=== PATIENT | female | born 1990 | race Caucasian/White ===

== ENCOUNTER 2017-01-23 23:01 | Emergency (ER) | payer BC ==
[2017-01-23 23:06] VITALS: BP 120/80; BMI 32.5
[2017-01-24] MEDS ORDERED: TORADOL 60 MG VIAL IM ONE (00:27)
[2017-01-24] MEDS ORDERED: ZOFRAN INJ 4 MG VIAL IM ONE (00:27)
--- NOTE | 2017-01-24 00:39 | DR.GENAD ---
HPI - PCP Primary Care Physician: [email or web address] - Complaint/Symptoms Chief Complaint:: FATIGUE, PAIN WITH DEEP BREATH, HEADACHE FOR 2 WEEKS, CHILLS - Source History Provided: Patient - Mode of Arrival Mode of Arrival: Ambulatory - Timing Onset of Chief Complaint: 01/23/17 - Duration Duration: Intermittent - Severity Severity: Moderate PMH - PMH Past Medical History: Yes Past Medical History: Diabetes Past Surgical History: No - Family History History of Family Medical Conditions: Yes Family Medical History: Diabetes Mellitus, Hypertension - Social History Does patient currently use any type of tobacco product: No Have you used tobacco products in the last 12 months: No Type of Tobacco Use: None Does any household member use tobacco: No Alcohol Use: None Do you use any recreational Drugs:: No Lives With: Significant Other Lives Where: Home - infectious screening Have you traveled outside the country in the last 6 months?: No Isolation: Standard PE - Vital Signs Vitals: Temperature 98.2 F Pulse Rate 110 Respiratory Rate 18 Blood Pressure 120/80 O2 Sat by Pulse Oximetry 99 - Diagnosis Discharge Problem: Tension headache - Discharge Plan Disposition: HOME, SELF-CARE Condition: Stable - Follow ups/Referrals Follow ups/Referrals: AZAR JEFFERS [Primary Care Provider] - 3 days - Instructions Instructions: Tension Headache, [id number]
[2017-01-24] MEDS ORDERED: TORADOL 60 MG VIAL ONE (00:49)
[2017-01-24] MEDS ORDERED: ZOFRAN INJ 4 MG VIAL ONE (00:49)
== END 2017-01-24 01:15 | disposition home or self-care (01) ==
LOC: ER 23:01
DX: R51 Headache (principal)
CPT/HCPCS: 96372; 99282; J1885; J2405

== ENCOUNTER 2017-01-28 09:08 | Emergency (ER) | payer BC ==
[2017-01-28 09:12] VITALS: BP 118/75; BMI 32.5
[2017-01-28] MEDS ORDERED: ZOFRAN INJ 4 MG VIAL IVP ONE (09:27)
[2017-01-28] MEDS ORDERED: NS 1000 ML 1,000 ML IV ONE (09:27)
[2017-01-28] MEDS ORDERED: NS 1000 ML 1,000 ML ONE ×2 (09:28→10:55)
[2017-01-28] MEDS ORDERED: ZOFRAN INJ 4 MG VIAL ONE (09:30)
--- NOTE | 2017-01-28 09:42 | DR.GENAD ---
HPI - PCP Primary Care Physician: felicia - HPI Comment HPI Comment: NAUSEA AND VOMITING STATED YESTERDAY. GLUCOSE WAS HIGH, INSULIN TAKING. THIS AM, GLUCOSE 200. STILL HAVING N/V. PATIENT IS WEAK. NOT HOLDING DOWN LIQUIDS - Complaint/Symptoms Chief Complaint Doctors Comments: NAUSEA, VOMITING, ELEVATED GLUCOSE TIME ONE DAY. Chief Complaint:: patient stated that yesterday her blood sugar was over 600 she took insulin blood sugar this morning was over 200. she has been vomiting since yesterday. - Nurses notes reviewed Nurses Notes Review: Yes - Source History Provided: Patient - Mode of Arrival Mode of Arrival: Ambulatory - Timing Onset of Chief Complaint: 01/27/17 Came on: Suddenly - Duration Duration: Constant Duration: Days - Severity Severity: Moderate PMH - PMH Past Medical History: Yes Past Medical History: Diabetes Past Surgical History: No - Family History History of Family Medical Conditions: Yes Family Medical History: Diabetes Mellitus, Hypertension - Social History Does patient currently use any type of tobacco product: No Have you used tobacco products in the last 12 months: No Type of Tobacco Use: None Does any household member use tobacco: No Alcohol Use: None Do you use any recreational Drugs:: No Lives With: Family Lives Where: Home - infectious screening In the last 2 months have you had wt loss of >10#?: NO Have you had fever, night sweats or hemotysis?: No Have you traveled outside the country in the last 6 months?: No Isolation: Standard ROS - Review of Systems Constitutional: Weakness, Fatigue. negative: Chills, Fever Eyes: No Symptoms Reported. negative: Eye Pain, Discharge ENTM: No Symptoms Reported. negative: Ear Pain, Nose Discharge, Nose Congestion , Throat Pain Respiratoy: Non-Productive Cough. negative: Productive Cough, Short of Breath, Wheezing, Hemoptysis Cardiovascular: No Symptoms Reported. negative: Chest Pain Gastrointestinal/Abdominal: Abdominal Pain, Nausea, Vomiting Genitourinary: No Symptoms Reported. negative: Dysuria, Frequency, Hematuria Neurological: Weakness Musculoskeletal: Muscle Pain Integumentary: No Symptoms Reported Hematologic/Lymphatic: No Symptoms Reported Endocrine: No Symptoms Reported All Other Systems: Reviewed and Negative PE - Vital Signs Vitals: Temperature 97.9 F Respiratory Rate 18 Blood Pressure 118/75 - General Limitations: No Limitations General Appearance: Alert - Head Head Exam: Normal Inspection - Eyes Eye exam: Normal Appearance - ENT ENT Exam: Normal External Ear Exam External Ear Exam: Normal External Inspection TM/Canal Exam: Bilateral Normal Nose Exam: Normal Nose Exam Mouth Exam: Normal Inspection Throat Exam: Normal Inspection - Neck Neck Exam: Trachea Midline. negative: Tenderness, Meningismus, Lymphadenopathy - Chest Chest Inspection: Symmetric Chest Wall Rise - Respiratory Respiratory Exam: Normal Lung Sounds Bilat Respiratory Exam: Bilateral Clear to Auscultation - Cardiovascular Cardiovascular Exam: Regular Rate, Normal Rhythm, Normal Heart Sounds - Abdominal Exam Abdominal Exam: Normal Bowel Sounds, Soft, Tenderness Abdominal Tenderness: Diffuse, Mild - Extremities Extremities Exam: Normal Inspection - Back Back Exam: Normal Inspection - Neurologic Neurological Exam: Alert, Oriented X3 - Psychiatric Psychiatric Exam: Anxious - Skin Skin Exam: Normal Color MDM - Differential Diagnosis Differential Diagnosis: GASTRITIS, NAUSEA/VOMITING. BOWEL OBSTRUCTION Course - Treatment Treatment: SEE ORDERS. - Education/Counseling Education/Counseling: Patient, Education Educated On: Diagnosis, Needs for Follow Up ROR - Labs Reviewed Laboratory Results Reviewed?: Yes Result Diagrams: 01/28/17 09:38 01/28/17 09:38 Laboratory: WBC 10.4 X10^3/uL (3.6-10.0) H 01/28/17 09:38 RBC 6.62 X10^6/uL (3.5-5.4) H 01/28/17 09:38 Hgb 12.2 g/dL (12.0-16.0) 01/28/17 09:38 Hct 38.2 % (36.0-47.0) 01/28/17 09:38 MCV 57.7 fL (80.0-100.0) L 01/28/17 09:38 MCH 18.4 pg (27.0-34.0) L 01/28/17 09:38 MCHC 31.9 g/dL (33.0-35.0) L 01/28/17 09:38 RDW 16.5 % (11.6-16.5) 01/28/17 09:38 Plt Count 288 X10^3/uL (150.0-450.0) 01/28/17 09:38 Plt Count Comment Adequate (ADEQUATE) 01/28/17 09:38 MPV 9.1 fL (7.4-11.0) 01/28/17 09:38 Neut % 66.6 % (42.0-75.0) 01/28/17 09:38 Lymph % 25.2 % (21.0-51.0) 01/28/17 09:38 [place] % 5.4 % (0.0-13.0) 01/28/17 09:38 Eos % 2.1 % (0.9-2.9) 01/28/17 09:38 Baso % 0.7 % (0.2-1.0) 01/28/17 09:38 Neut # 6.9 x10^3/uL (2.2-4.8) H 01/28/17 09:38 Lymph # 2.6 X10^3/uL (1.3-2.9) 01/28/17 09:38 [place] # 0.6 x10^3/uL (0.3-0.8) 01/28/17 09:38 Eos # 0.2 x10^3/uL (0.0-0.2) 01/28/17 09:38 Baso # 0.1 X10^3/uL (0.0-0.1) 01/28/17 09:38 Absolute Nucleated RBC 0.1 /100WBC 01/28/17 09:38 Plt Morphology Comment Normal (NORMAL) 01/28/17 09:38 RBC Morphology Abnormal (NORMAL) A 01/28/17 09:38 Hypochromasia 2+ A 01/28/17 09:38 Microcytosis 3+ A 01/28/17 09:38 Sodium 139 mmol/L (136-145) 01/28/17 09:38 Corrected Sodium TNP 01/28/17 09:38 Potassium 3.2 mmol/L (3.5-5.1) L 01/28/17 09:38 Chloride 103 mmol/L (98-107) 01/28/17 09:38 Carbon Dioxide 32.0 mmol/L (21-32) 01/28/17 09:38 BUN 12 mg/dL (7-18) 01/28/17 09:38 Creatinine 0.90 mg/dL (0.55-1.02) 01/28/17 09:38 Est GFR (MDRD) Af Amer > 60 (>60) 01/28/17 09:38 Est GFR (MDRD) Non-Af > 60 (>60) 01/28/17 09:38 Glucose 72 mg/dL (65-99) 01/28/17 09:38 Calcium 8.9 mg/dL (8.5-10.1) 01/28/17 09:38 Corrected Calcium 9.8 mg/dL (8.5-10.1) 01/28/17 09:38 Total Bilirubin 0.40 mg/dL (0.2-1.0) 01/28/17 09:38 AST 26 Units/L (15-37) 01/28/17 09:38 ALT 37 Units/L (12-78) 01/28/17 09:38 Alkaline Phosphatase 99 Units/L (46-116) 01/28/17 09:38 Total Protein 6.8 g/dL (6.4-8.2) 01/28/17 09:38 Albumin 2.9 g/dL (3.4-5.0) L 01/28/17 09:38 Globulin 3.9 g/dL (2.5-4.5) 01/28/17 09:38 Albumin/Globulin Ratio 0.7 Ratio (1.1-2.1) L 01/28/17 09:38 Acetone, Semi-Quant Negative (NEGATIVE) 01/28/17 09:38 - Diagnosis Discharge Problem: Gastritis Qualifiers: Gastritis type: unspecified gastritis Chronicity: acute Gastritis bleeding: without bleeding Qualified Code(s): K29.00 - Acute gastritis without bleeding Nausea & vomiting Qualifiers: Vomiting type: bilious vomiting Qualified Code(s): R11.14 - Bilious vomiting - Discharge Plan Disposition: 01 HOME, SELF-CARE Condition: Stable Prescriptions: Ondansetron HCl [Zofran Tab 4 mg] 4 mg PO Q8H PRN #12 tab PRN Reason: Nausea/Vomiting - Follow ups/Referrals Follow ups/Referrals: AZAR JEFFERS [Primary Care Provider] - 2 days - Instructions Instructions: Gastritis, Adult, Nausea and Vomiting, Adult, [id number] Additional Instructions: RETURN TO ED IF WORSE.
[2017-01-28 09:52] LABS: BASOPHILS # (AUTO) 0.1 X10^3/uL (0.0-0.1); BASOPHILS % (AUTO) 0.7 % (0.2-1.0); EOSINOPHILS # (AUTO) 0.2 x10^3/uL (0.0-0.2); EOSINOPHILS % (AUTO) 2.1 % (0.9-2.9); HEMATOCRIT 38.2 % (36.0-47.0); HEMOGLOBIN 12.2 g/dL (12.0-16.0); LYMPHOCYTES # (AUTO) 2.6 X10^3/uL (1.3-2.9); LYMPHOCYTES % (AUTO) 25.2 % (21.0-51.0); MEAN CORPUSCULAR HEMOGLOBIN 18.4 pg (27.0-34.0); MEAN CORPUSCULAR HGB CONC 31.9 g/dL (33.0-35.0); MEAN CORPUSCULAR VOLUME 57.7 fL (80.0-100.0); MEAN PLATELET VOLUME 9.1 fL (7.4-11.0); MONOCYTES # (AUTO) 0.6 x10^3/uL (0.3-0.8); MONOCYTES % (AUTO) 5.4 % (0.0-13.0); NEUTROPHILS # (AUTO) 6.9 x10^3/uL (2.2-4.8); NEUTROPHILS % (AUTO) 66.6 % (42.0-75.0); PLATELET COUNT 288 X10^3/uL (150.0-450.0); RED BLOOD COUNT 6.62 X10^6/uL (3.5-5.4); RED CELL DISTRIBUTION WIDTH 16.5 % (11.6-16.5); WHITE BLOOD COUNT 10.4 X10^3/uL (3.6-10.0)
[2017-01-28 09:59] LABS: ALANINE AMINOTRANSFERASE 37 Units/L (12-78); ALBUMIN 2.9 g/dL (3.4-5.0); ALKALINE PHOSPHATASE 99 Units/L (46-116); ASPARTATE AMINO TRANSFERASE 26 Units/L (15-37); BLOOD UREA NITROGEN 12 mg/dL (7-18); CALCIUM 8.9 mg/dL (8.5-10.1); CHLORIDE 103 mmol/L (98-107); COR CA(FOR HYPOALB) 9.8 mg/dL (8.5-10.1); GLUCOSE 72 mg/dL (65-99); SODIUM 139 mmol/L (136-145); TOTAL PROTEIN 6.8 g/dL (6.4-8.2); eGFR BLACK RACES > 60 (>60); eGFR NON BLACK RACES > 60 (>60)
[2017-01-28 10:02] LABS: SERUM ACETONE NEGATIVE (NEGATIVE)
[2017-01-28 10:18] LABS: HYPOCHROMASIA 2+; MICROCYTOSIS 3+; PLATELET MORPHOLOGY COMMENT NORMAL (NORMAL)
[2017-01-28] MEDS ORDERED: POTASSIUM CHLORIDE LIQ 20 MEQ UDC PO ONE (11:57)
[2017-01-28] MEDS ORDERED: POTASSIUM CHLORIDE LIQ 20 MEQ UDC ONE (12:14)
== END 2017-01-28 12:25 | disposition home or self-care (01) ==
LOC: ER 09:20
DX: K29.00 Acute gastritis without bleeding (principal); R11.14 Bilious vomiting
CPT/HCPCS: 36415; 80053; 82009; 85025; 96365; 96374; 99283; A4222; J2405

== ENCOUNTER 2017-03-06 08:48 | Emergency (ER) | payer BC ==
[2017-03-06 08:53] VITALS: BP 117/76; BMI 33.5
[2017-03-06] MEDS ORDERED: NS 1000 ML 1,000 ML IV ONE (09:24)
[2017-03-06] MEDS ORDERED: NS 1000 ML 1,000 ML ONE (09:25)
[2017-03-06] MEDS ORDERED: PEPCID 20 MG IV PREMIX* 20 MG/50 ML BAG IV ONE (09:29)
[2017-03-06] MEDS ORDERED: ZOFRAN INJ 4 MG VIAL IVP ONE (09:29)
[2017-03-06] MEDS ORDERED: TORADOL 30 MG VIAL IVP ONE (09:29)
[2017-03-06 09:33] LABS: BASOPHILS # (AUTO) 0.1 X10^3/uL (0.0-0.1); BASOPHILS % (AUTO) 1.5 % (0.2-1.0); EOSINOPHILS # (AUTO) 0.2 x10^3/uL (0.0-0.2); EOSINOPHILS % (AUTO) 2.5 % (0.9-2.9); HEMATOCRIT 37.2 % (36.0-47.0); HEMOGLOBIN 11.6 g/dL (12.0-16.0); LYMPHOCYTES # (AUTO) 1.5 X10^3/uL (1.3-2.9); LYMPHOCYTES % (AUTO) 21.8 % (21.0-51.0); MEAN CORPUSCULAR HEMOGLOBIN 18.5 pg (27.0-34.0); MEAN CORPUSCULAR HGB CONC 31.3 g/dL (33.0-35.0); MEAN CORPUSCULAR VOLUME 59.1 fL (80.0-100.0); MONOCYTES # (AUTO) 0.4 x10^3/uL (0.3-0.8); MONOCYTES % (AUTO) 6.4 % (0.0-13.0); NEUTROPHILS # (AUTO) 4.6 x10^3/uL (2.2-4.8); NEUTROPHILS % (AUTO) 67.8 % (42.0-75.0); PLATELET COUNT 262 X10^3/uL (150.0-450.0); RED BLOOD COUNT 6.29 X10^6/uL (3.5-5.4); RED CELL DISTRIBUTION WIDTH 16.5 % (11.6-16.5); WHITE BLOOD COUNT 6.8 X10^3/uL (3.6-10.0)
[2017-03-06 09:40] LABS: SERUM ACETONE NEGATIVE (NEGATIVE)
[2017-03-06 09:45] LABS: ALANINE AMINOTRANSFERASE 21 Units/L (12-78); ALBUMIN 2.8 g/dL (3.4-5.0); ALKALINE PHOSPHATASE 96 Units/L (46-116); ASPARTATE AMINO TRANSFERASE 11 Units/L (15-37); BLOOD UREA NITROGEN 13 mg/dL (7-18); CARBON DIOXIDE 26.1 mmol/L (21-32); CHLORIDE 103 mmol/L (98-107); COR NA(FOR HYPERGLY) 143 mmol/L (136-145); GLUCOSE 321 mg/dL (65-99); SODIUM 138 mmol/L (136-145); TOTAL PROTEIN 6.7 g/dL (6.4-8.2); eGFR BLACK RACES > 60 (>60); eGFR NON BLACK RACES > 60 (>60)
[2017-03-06 09:49] LABS: HYPOCHROMASIA 2+; MICROCYTOSIS 2+; PLATELET MORPHOLOGY COMMENT NORMAL (NORMAL)
[2017-03-06 09:57] LABS: BILIRUBIN,URINE NEGATIVE (NEGATIVE); BLOOD/HEMOGLOBIN,URINE 3+ (NEGATIVE); GLUCOSE, URINE 4+ (NEGATIVE); KETONES,URINE NEGATIVE (NEGATIVE); LEUKOCYTE ESTERASE ,URINE 1+ (NEGATIVE); NITRITES,URINE NEGATIVE (NEGATIVE); PROTEIN,URINE 2+ (NEGATIVE); UROBILINOGEN,URINE NORMAL (NORMAL)
[2017-03-06 10:14] LABS: APPEARANCE,URINE HAZY (CLEAR); COLOR,URINE YELLOW (YELLOW)
[2017-03-06 10:15] LABS: BACTERIA,URINE TRACE /HPF (NEGATIVE); RBC,URINE 0-2 /HPF (NEGATIVE); SQUAMOUS EPITHELIAL CELL,UR RARE /HPF (NEGATIVE)
--- NOTE | 2017-03-06 10:20 | DR.GENAD ---
HPI - PCP Primary Care Physician: felicia - HPI Comment HPI Comment: TODAY, FEELING WEAK AND GETTING WORSE. - Complaint/Symptoms Chief Complaint Doctors Comments: ELEVATED GLUCOSE, NAUSEA TIMES 2 DAY. Chief Complaint:: blood sugar has been over 600+ at home. she has been taking her insulin - Nurses notes reviewed Nurses Notes Review: Yes - Source History Provided: Patient - Mode of Arrival Mode of Arrival: Ambulatory - Timing Onset of Chief Complaint: 03/04/17 Came on: Suddenly - Duration Duration: Constant Duration: Days - Severity Severity: Moderate PMH - PMH Past Medical History: Yes Past Medical History: Diabetes Past Surgical History: No - Family History History of Family Medical Conditions: Yes Family Medical History: Diabetes Mellitus, Hypertension - Social History Does patient currently use any type of tobacco product: No Have you used tobacco products in the last 12 months: No Type of Tobacco Use: None Does any household member use tobacco: No Alcohol Use: None Do you use any recreational Drugs:: No Lives With: Family Lives Where: Home - infectious screening In the last 2 months have you had wt loss of >10#?: NO Have you had fever, night sweats or hemotysis?: No Have you traveled outside the country in the last 6 months?: No Isolation: Standard ROS - Review of Systems Constitutional: Weakness, Fatigue, Loss of Appetite. negative: Chills, Diaphoresis, Fever Eyes: No Symptoms Reported. negative: Eye Pain, Discharge ENTM: Nose Congestion. negative: Ear Pain, Nose Discharge, Throat Pain Respiratoy: No Symptoms Reported. negative: Productive Cough, Short of Breath, Wheezing, Hemoptysis Cardiovascular: No Symptoms Reported. negative: Chest Pain, Edema, Syncope Gastrointestinal/Abdominal: Abdominal Pain, Nausea Genitourinary: No Symptoms Reported, Pain. negative: Dysuria, Frequency, Hematuria Neurological: Weakness, Dizziness. negative: Headache Musculoskeletal: Muscle Pain Integumentary: Dryness Hematologic/Lymphatic: No Symptoms Reported Endocrine: No Symptoms Reported Psychiatric: No Symptoms Reported All Other Systems: Reviewed and Negative PE - Vital Signs Vitals: Temperature 98.6 F Pulse Rate 104 Respiratory Rate 16 Blood Pressure 117/76 O2 Sat by Pulse Oximetry 96 - General Limitations: No Limitations General Appearance: Alert - Head Head Exam: Normal Inspection - Eyes Eye exam: Normal Appearance - ENT ENT Exam: Normal External Ear Exam External Ear Exam: Normal External Inspection TM/Canal Exam: Bilateral Normal Nose Exam: Normal Nose Exam Mouth Exam: Normal Inspection Throat Exam: Normal Inspection - Neck Neck Exam: Trachea Midline - Chest Chest Inspection: Symmetric Chest Wall Rise - Respiratory Respiratory Exam: Normal Lung Sounds Bilat Respiratory Exam: Bilateral Clear to Auscultation - Cardiovascular Cardiovascular Exam: Regular Rate, Normal Rhythm, Normal Heart Sounds - Abdominal Exam Abdominal Exam: Normal Bowel Sounds, Soft. negative: Tenderness - Extremities Extremities Exam: Normal Inspection - Back Back Exam: Normal Inspection - Neurologic Neurological Exam: Alert, Oriented X3 - Psychiatric Psychiatric Exam: Normal Affect, Normal Mood - Skin Skin Exam: Normal Color MDM - Differential Diagnosis Differential Diagnosis: HYPERGLYCEMIA, DEHYDRATION Course - Treatment Treatment: SEE ORDERS. - Education/Counseling Education/Counseling: Patient, Education Educated On: Treatment, Diagnosis, Needs for Follow Up ROR - Labs Reviewed Laboratory Results Reviewed?: Yes Result Diagrams: 03/06/17 09:18 03/06/17 09:18 Laboratory: WBC 6.8 X10^3/uL (3.6-10.0) 03/06/17 09:18 RBC 6.29 X10^6/uL (3.5-5.4) H 03/06/17 09:18 Hgb 11.6 g/dL (12.0-16.0) L 03/06/17 09:18 Hct 37.2 % (36.0-47.0) 03/06/17 09:18 MCV 59.1 fL (80.0-100.0) L 03/06/17 09:18 MCH 18.5 pg (27.0-34.0) L 03/06/17 09:18 MCHC 31.3 g/dL (33.0-35.0) L 03/06/17 09:18 RDW 16.5 % (11.6-16.5) 03/06/17 09:18 Plt Count 262 X10^3/uL (150.0-450.0) 03/06/17 09:18 Plt Count Comment Adequate (ADEQUATE) 03/06/17 09:18 MPV 9.0 fL (7.4-11.0) 03/06/17 09:18 Neut % 67.8 % (42.0-75.0) 03/06/17 09:18 Lymph % 21.8 % (21.0-51.0) 03/06/17 09:18 [place]ady % 6.4 % (0.0-13.0) 03/06/17 09:18 Eos % 2.5 % (0.9-2.9) 03/06/17 09:18 Baso % 1.5 % (0.2-1.0) H 03/06/17 09:18 Neut # 4.6 x10^3/uL (2.2-4.8) 03/06/17 09:18 Lymph # 1.5 X10^3/uL (1.3-2.9) 03/06/17 09:18 [place]ady # 0.4 x10^3/uL (0.3-0.8) 03/06/17 09:18 Eos # 0.2 x10^3/uL (0.0-0.2) 03/06/17 09:18 Baso # 0.1 X10^3/uL (0.0-0.1) 03/06/17 09:18 Absolute Nucleated RBC 0.2 /100WBC 03/06/17 09:18 Plt Morphology Comment Normal (NORMAL) 03/06/17 09:18 RBC Morphology Abnormal (NORMAL) A 03/06/17 09:18 Hypochromasia 2+ A 03/06/17 09:18 Microcytosis 2+ A 03/06/17 09:18 Sodium 138 mmol/L (136-145) 03/06/17 09:18 Corrected Sodium 143 mmol/L (136-145) 03/06/17 09:18 Potassium 3.5 mmol/L (3.5-5.1) 03/06/17 09:18 Chloride 103 mmol/L (98-107) 03/06/17 09:18 Carbon Dioxide 26.1 mmol/L (21-32) 03/06/17 09:18 BUN 13 mg/dL (7-18) 03/06/17 09:18 Creatinine 0.90 mg/dL (0.55-1.02) 03/06/17 09:18 Est GFR (MDRD) Af Amer > 60 (>60) 03/06/17 09:18 Est GFR (MDRD) Non-Af > 60 (>60) 03/06/17 09:18 Glucose 321 mg/dL (65-99) H 03/06/17 09:18 Calcium 8.0 mg/dL (8.5-10.1) L 03/06/17 09:18 Corrected Calcium 9.0 mg/dL (8.5-10.1) 03/06/17 09:18 Total Bilirubin 0.30 mg/dL (0.2-1.0) 03/06/17 09:18 AST 11 Units/L (15-37) L 03/06/17 09:18 ALT 21 Units/L (12-78) 03/06/17 09:18 Alkaline Phosphatase 96 Units/L (46-116) 03/06/17 09:18 Total Protein 6.7 g/dL (6.4-8.2) 03/06/17 09:18 Albumin 2.8 g/dL (3.4-5.0) L 03/06/17 09:18 Globulin 3.9 g/dL (2.5-4.5) 03/06/17 09:18 Albumin/Globulin Ratio 0.7 Ratio (1.1-2.1) L 03/06/17 09:18 HCG, Qual Negative <10 mIU/mL 03/06/17 09:18 Specimen Type Clean catch urine 03/06/17 09:46 Urine Color Yellow (YELLOW) 03/06/17 09:46 Urine Appearance Hazy (CLEAR) 03/06/17 09:46 Urine pH 5.0 (5.0 - 8.0) 03/06/17 09:46 Ur Specific [place] 1.010 (1.000-1.030) 03/06/17 09:46 Urine Protein 2+ (NEGATIVE) 03/06/17 09:46 Urine Glucose (UA) 4+ (NEGATIVE) 03/06/17 09:46 Urine Ketones Negative (NEGATIVE) 03/06/17 09:46 Urine Occult Blood 3+ (NEGATIVE) 03/06/17 09:46 Urine Nitrite Negative (NEGATIVE) 03/06/17 09:46 Urine Bilirubin Negative (NEGATIVE) 03/06/17 09:46 Urine Urobilinogen Normal (NORMAL) 03/06/17 09:46 Ur Leukocyte Esterase 1+ (NEGATIVE) 03/06/17 09:46 Urine RBC 0-2 /HPF (NEGATIVE) 03/06/17 09:46 Urine WBC 6-10 /HPF (NEGATIVE) 03/06/17 09:46 Ur Squamous Epith Cells Rare /HPF (NEGATIVE) 03/06/17 09:46 Urine Bacteria Trace /HPF (NEGATIVE) 03/06/17 09:46 Ur Culture Indicated? No/not indicated 03/06/17 09:46 Acetone, Semi-Quant Negative (NEGATIVE) 03/06/17 09:18 - Diagnosis Discharge Problem: Hyperglycemia, Dehydration Nausea & vomiting Qualifiers: Vomiting type: bilious vomiting Qualified Code(s): R11.14 - Bilious vomiting - Discharge Plan Disposition: 01 HOME, SELF-CARE Condition: Stable Prescriptions: Ondansetron HCl [Zofran Tab 4 mg] 4 mg PO Q8H PRN #12 tab PRN Reason: Nausea/Vomiting - Follow ups/Referrals Follow ups/Referrals: AZAR JEFFERS [Primary Care Provider] - 03/07/17 - Instructions Instructions: Hyperglycemia, Nausea and Vomiting, Adult, [id number] Additional Instructions: RETURN TO ED IF WORSE.
[2017-03-06 10:23] LABS: SERUM PREGNANCY TEST, QUAL NEGATIVE <10 mIU/mL
== END 2017-03-06 11:42 | disposition home or self-care (01) ==
LOC: ER 08:56
DX: R73.9 Hyperglycemia, unspecified (principal); E86.0 Dehydration; R11.14 Bilious vomiting
CPT/HCPCS: 36415; 80053; 81001; 82009; 84703; 85025; 96365; 96367; 96374; 96375; 99283; A4222